=== PATIENT | male | born 1940 | race Hispanic/Latino ===

== ENCOUNTER 2019-10-08 20:26 | Emergency (ER) | payer OTHER ==
--- NOTE | 2019-10-08 21:21 | RAD REPORT ---
EXAM DESCRIPTION: RAD - Chest Single View - 10/08/2019 9:12 pm CLINICAL HISTORY: COUGH Chest pain. COMPARISON: No comparisons FINDINGS: Portable technique limits examination quality. The lungs are grossly clear. The heart is mildly prominent in size with sternotomy wires present. No displaced fractures. IMPRESSION: No acute intrathoracic process suspected.
[2019-10-08 21:29] LABS: Absolute Lymphocytes (CBC) 1.2 K/uL (0.7-4.9); Basophils % 0.6 % (0-1.3); Hematocrit 39.6 % (39.6-49.0); Lymphocytes % 17.8 % (15.3-44.8); MPV 8.1 fL (7.6-11.3)
[2019-10-08] MEDS ORDERED: NA CHLORIDE 0.9% 1,000 ML ONE (21:32)
[2019-10-08 21:51] LABS: ALT/SGPT 20 U/L (12-78); AST/SGOT 13 U/L (15-37); Albumin 3.7 g/dL (3.4-5.0); Alkaline Phosphatase 82 U/L (45-117); BUN Blood Urea Nitrogen 22 mg/dL (7-18); Bicarbonate 27 mmol/L (21-32); Bilirubin Direct < 0.1 mg/dL (0-0.2); Bilirubin Total 0.3 mg/dL (0.2-1.0); Glucose Level 150 mg/dL (74-106); Magnesium 2.4 mg/dL (1.8-2.4); NT PRO-BNP 815 pg/mL (<450); Protein, Total 7.1 g/dL (6.4-8.2); Sodium Level 141 mmol/L (136-145); Troponin (Emerg Dept Use Only) < 0.02 ng/mL (0.0-0.045)
[2019-10-08 21:57] LABS: Protime INR 0.95
[2019-10-08] MEDS ORDERED: CEFTRIAXONE/SWI 1gm 1 GM/10 ML SYR ONE (21:59)
[2019-10-08 22:02] LABS: Urine Blood TRACE (NEG); Urine Glucose NEGATIVE (NEG); Urine Protein NEGATIVE (NEG); Urine Specific Gravity >1.030 (1.005-1.030); Urine pH 5.5 (5.0-7.0)
--- NOTE | 2019-10-08 22:20 | EDPHYS ---
Physician Documentation [facility] Name: Delmer Oropeza Age: 79 yrs Sex: Male : 1940 Arrival Date: 10/08/2019 Time: 20:28 Bed 6 Private MD: ED Physician Lionel Mortensen HPI: 10/07 20:54 This 79 yrs old Male presents to ER via Unassigned with complaints of Fever. christiano 20:54 The patient reports fever, not measured (subjective), that was measured at 98.2 degrees christiano Fahrenheit. Onset: The symptoms/episode began/occurred just prior to arrival. Modifying factors: there are no obvious modifying factors. Associated signs and symptoms: Pertinent negatives: abdominal pain, altered mental status, arthralgias, chills, cough, diarrhea, headache, nausea, night sweats, runny nose, sinus congestion, sinus drainage, skin rash, shortness of breath, sore throat. Severity of symptoms: At their worst the symptoms were very mild in the emergency department the symptoms are unchanged. The patient has not experienced similar symptoms in the past. Historical: - Allergies: 21:03 No Known Allergies; vc - Home Meds: 21:03 something for diabetes [Active]; "something for bloodpressure" [Active]; "something for vc my prostate" [Active]; - PMHx: 21:04 Hypertension; Diabetes - NIDDM; prostate problem; triple bypass in 1992; vc - Immunization history:: Adult Immunizations up to date. - Social history:: Smoking status: Patient denies any tobacco usage or history of. - Family history:: not pertinent. ROS: 20:54 Constitutional: Negative for fever, chills, and weight loss, Eyes: Negative for injury, christiano pain, redness, and discharge, ENT: Negative for injury, pain, and discharge, Neck: Negative for injury, pain, and swelling, Cardiovascular: Negative for chest pain, palpitations, and edema, Respiratory: Negative for shortness of breath, cough, wheezing, and pleuritic chest pain, Abdomen/GI: Negative for abdominal pain, nausea, vomiting, diarrhea, and constipation, Back: Negative for injury and pain, : Negative for injury, bleeding, discharge, and swelling, MS/Extremity: Negative for injury and deformity, Skin: Negative for injury, rash, and discoloration, Neuro: Negative for headache, weakness, numbness, tingling, and seizure, Psych: Negative for depression, anxiety, suicide ideation, homicidal ideation, and hallucinations, Allergy/Immunology: Negative for hives, rash, and allergies, Endocrine: Negative for neck swelling, polydipsia, polyuria, polyphagia, and marked weight changes, Hematologic/Lymphatic: Negative for swollen nodes, abnormal bleeding, and unusual bruising. Exam: 20:54 Constitutional: This is a well developed, well nourished patient who is awake, alert, christiano and in no acute distress. Head/Face: Normocephalic, atraumatic. Eyes: Pupils equal round and reactive to light, extra-ocular motions intact. Lids and lashes normal. Conjunctiva and sclera are non-icteric and not injected. Cornea within normal limits. Periorbital areas with no swelling, redness, or edema. ENT: Nares patent. No nasal discharge, no septal abnormalities noted. Tympanic membranes are normal and external auditory canals are clear. Oropharynx with no redness, swelling, or masses, exudates, or evidence of obstruction, uvula midline. Mucous membranes moist. Neck: Trachea midline, no thyromegaly or masses palpated, and no cervical lymphadenopathy. Supple, full range of motion without nuchal rigidity, or vertebral point tenderness. No Meningismus. Chest/axilla: Normal chest wall appearance and motion. Nontender with no deformity. No lesions are appreciated. Cardiovascular: Regular rate and rhythm with a normal S1 and S2. No gallops, murmurs, or rubs. Normal PMI, no JVD. No pulse deficits. Respiratory: Lungs have equal breath sounds bilaterally, clear to auscultation and percussion. No rales, rhonchi or wheezes noted. No increased work of breathing, no retractions or nasal flaring. Abdomen/GI: Soft, non-tender, with normal bowel sounds. No distension or tympany. No guarding or rebound. No evidence of tenderness throughout. Back: No spinal tenderness. No costovertebral tenderness. Full range of motion. Male : Normal genitalia with no discharge or lesions. Skin: Warm, dry with normal turgor. Normal color with no rashes, no lesions, and no evidence of cellulitis. MS/ Extremity: Pulses equal, no cyanosis. Neurovascular intact. Full, normal range of motion. Neuro: Awake and alert, GCS 15, oriented to person, place, time, and situation. Cranial nerves II-XII grossly intact. Motor strength 5/5 in all extremities. Sensory grossly intact. Cerebellar exam normal. Normal gait. Psych: Awake, alert, with orientation to person, place and time. Behavior, mood, and affect are within normal limits. Vital Signs: 20:57 BP 151 / 83; Pulse 82; Resp 20; Temp 98.4(O); Pulse Ox 100% on R/A; Weight 79.38 kg; vc Height 5 ft. 9 in. (175.26 cm); Pain 0/10; 21:50 BP 155 / 86; Pulse 96; Resp 18; Pulse Ox 97% on R/A; vc 20:57 Body Mass Index 25.84 (79.38 kg, 175.26 cm) vc MDM: 20:37 Patient medically screened. [facility] 20:56 Data reviewed: vital signs, nurses notes, lab test result(s), EKG, radiologic studies, christiano plain films. 10/07 20:40 Order name: Basic Metabolic Panel; Complete Time: 22:19 [facility] 10/07 20:40 Order name: CBC with Diff; Complete Time: 22:19 [facility] 10/07 20:40 Order name: LFT's; Complete Time: 22:19 [facility] 10/07 20:40 Order name: Magnesium; Complete Time: 22:19 [facility] 10/07 20:40 Order name: NT PRO-BNP; Complete Time: 22:19 [facility] 10/07 20:40 Order name: PT-INR; Complete Time: 22:19 [facility] 10/07 20:40 Order name: Troponin (emerg Dept Use Only); Complete Time: 22:19 [facility] 10/07 20:40 Order name: XRAY Chest (1 view); Complete Time: 22:19 [facility] 10/07 20:40 Order name: Blood Culture Adult (2) [facility] 10/07 20:40 Order name: Influenza Screen (a \\T\\ B); Complete Time: 22:19 [facility] 10/07 20:40 Order name: Strep; Complete Time: 22:19 [facility] 10/07 20:40 Order name: Urine Culture [facility] 10/07 21:44 Order name: Urine Dipstick--Ancillary (enter results); Complete Time: 22:19 mw2 10/07 21:59 Order name: Throat Culture [facility] 10/07 20:40 Order name: EKG; Complete Time: 20:42 [facility] 10/07 20:40 Order name: Cardiac monitoring; Complete Time: 22:06 [facility] 10/07 20:40 Order name: EKG - Nurse/Tech; Complete Time: 22:06 [facility] 10/07 20:40 Order name: IV Saline Lock; Complete Time: 21:25 [facility] 10/07 20:40 Order name: Labs collected and sent; Complete Time: : [facility] 10/07 20:40 Order name: O2 Per Protocol; Complete Time: 21:25 [facility] 10/07 20:40 Order name: O2 Sat Monitoring; Complete Time: 21: [facility] 10/07 20:40 Order name: Urine Dipstick-Ancillary (obtain specimen); Complete Time: 21:43 [facility] 10/07 22:23 Order name: Orthostatics; Complete Time: 00:48 [facility] Administered Medications: 21:43 Drug: NS 0.9% 1000 ml Route: IV; Rate: 1 bolus; Site: right antecubital; vc 10/08 00:47 Follow up: IV Status: Completed infusion; IV Intake: 1000ml 10/07 21:58 Drug: Rocephin 1 grams Route: IV; Rate: per protocol; Site: right forearm; ea Disposition: 10/08/19 22:19 Discharged to Home. Impression: Fever, unspecified, Type 2 diabetes mellitus. - Condition is Stable. - Discharge Instructions: Type 2 Diabetes Mellitus, Diagnosis, Adult, Fever, Adult, Type 2 Diabetes Mellitus, Diagnosis, Adult, [id number], Fever, Adult, [id number]. - Medication Reconciliation Form, Thank You Letter, Antibiotic Education, Prescription Opioid Use form. - Follow up: Private Physician; When: 2 - 3 days; Reason: Recheck today's complaints, Continuance of care, Re-evaluation by your physician. - Problem is new. - Symptoms have improved. Signatures: Dispatcher [employer] [facility] Lionel Mortensen MD MD cha Antunez, Elena, RN RN Krysta Vasquez RN RN vc Corrections: (The following items were deleted from the chart) 22:37 22:19 10/08/2019 22:19 Discharged to Home. Impression: Fever, unspecified; Type 2 vc diabetes mellitus. Condition is Stable. Discharge Instructions: Type 2 Diabetes Mellitus, Diagnosis, Adult, Fever, Adult, Type 2 Diabetes Mellitus, Diagnosis, Adult, [id number], Fever, Adult, [id number]. Forms are Medication Reconciliation Form, Thank You Letter, Antibiotic Education, Prescription Opioid Use. Follow up: Private Physician; When: 2 - 3 days; Reason: Recheck today's complaints, Continuance of care, Re-evaluation by your physician. Problem is new. Symptoms have improved. christiano
--- NOTE | 2019-10-08 22:20 | ER ---
Nurse's Notes [facility] Name: Delmer Oropeza Age: 79 yrs Sex: Male : 1940 Arrival Date: 10/08/2019 Time: 20:28 Bed 6 Private MD: Diagnosis: Fever, unspecified;Type 2 diabetes mellitus Presentation: 10/07 20:57 Chief complaint: Patient states: "I took my temperature and it was the highest it has vc been, I'm sorry with everything going on I got scared.". Coronavirus screen: Proceed with normal triage. Patient denies a cough. Patient denies shortness of breath or difficulty breathing. Patient denies measured and/or subjective temperature greater than 100.4F prior to today's visit. Patient denies travel on a cruise ship or to a country the [facility] currently lists as an affected area. Patient denies contact with known and/or suspected case of COVID-19. Ebola Screen: No symptoms or risks identified at this time. Initial Sepsis Screen: Does the patient meet any 2 criteria? No. Patient's initial sepsis screen is negative. Does the patient have a suspected source of infection? No. Patient's initial sepsis screen is negative. Risk Assessment: Do you want to hurt yourself or someone else? Patient reports no desire to harm self or others. Onset of symptoms was 1999. 20:57 Method Of Arrival: Wheelchair vc 20:57 Acuity: MONROE 4 vc Triage Assessment: 21:05 General: Appears in no apparent distress. Behavior is cooperative, anxious. Pain: vc Denies pain. Historical: - Allergies: 21:03 No Known Allergies; vc - Home Meds: 21:03 something for diabetes [Active]; "something for bloodpressure" [Active]; "something for vc my prostate" [Active]; - PMHx: 21:04 Hypertension; Diabetes - NIDDM; prostate problem; triple bypass in 1992; vc - Immunization history:: Adult Immunizations up to date. - Social history:: Smoking status: Patient denies any tobacco usage or history of. - Family history:: not pertinent. Screenin:05 Abuse screen: Denies threats or abuse. Nutritional screening: No deficits noted. vc Tuberculosis screening: No symptoms or risk factors identified. Fall Risk None identified. Assessment: 20:30 General: Appears in no apparent distress. comfortable, Behavior is cooperative, vc anxious. Pain: Denies pain. Pain: Denies pain. Neuro: Level of Consciousness is awake, alert, obeys commands, Oriented to person, place, time, situation. Cardiovascular: Capillary refill < 3 seconds Patient's skin is warm and dry. Respiratory: Respiratory effort is even, unlabored, Respiratory pattern is regular, symmetrical. GI: No signs and/or symptoms were reported involving the gastrointestinal system. : No signs and/or symptoms were reported regarding the genitourinary system. EENT: No signs and/or symptoms were reported regarding the EENT system. Derm: Skin temperature is warm. Musculoskeletal: Circulation, motion, and sensation intact. Range of motion: intact in all extremities. 21:30 Reassessment: Patient appears in no apparent distress at this time. Patient and/or vc family updated on plan of care and expected duration. Pain level reassessed. 22:20 Reassessment: Patient appears in no apparent distress at this time. Patient and/or vc family updated on plan of care and expected duration. Pain level reassessed. Patient is alert, oriented x 3, equal unlabored respirations, skin warm/dry/pink. Vital Signs: 20:57 BP 151 / 83; Pulse 82; Resp 20; Temp 98.4(O); Pulse Ox 100% on R/A; Weight 79.38 kg; vc Height 5 ft. 9 in. (175.26 cm); Pain 0/10; 21:50 BP 155 / 86; Pulse 96; Resp 18; Pulse Ox 97% on R/A; vc 20:57 Body Mass Index 25.84 (79.38 kg, 175.26 cm) vc ED Course: 20:28 Patient arrived in ED. cl3 20:37 Lionel Mortensen MD is Attending Physician. christiano 20:44 Krysta Amador RN is Primary Nurse. vc 21:01 Triage completed. vc 21:05 Arm band placed on right wrist. vc 21:05 Patient has correct armband on for positive identification. Bed in low position. Call vc light in reach. Pulse ox on. NIBP on. 21:13 XRAY Chest (1 view) In Process Unspecified. EDMS 21:42 Missed attempt(s): 20 gauge in left antecubital area. dh4 22:20 IV discontinued, intact, bleeding controlled, No redness/swelling at site. Pressure vc dressing applied. 22:21 No provider procedures requiring assistance completed. vc Administered Medications: 21:43 Drug: NS 0.9% 1000 ml Route: IV; Rate: 1 bolus; Site: right antecubital; vc 10/08 00:47 Follow up: IV Status: Completed infusion; IV Intake: 1000ml vc 10/07 21:58 Drug: Rocephin 1 grams Route: IV; Rate: per protocol; Site: right forearm; ea Intake: 10/08 00:47 IV: 1000ml; Total: 1000ml. vc Outcome: 10/07 22:19 Discharge ordered by . christiano 22:35 Discharged to home ambulatory. vc 22:35 Condition: good 22:35 Discharge instructions given to patient, Instructed on discharge instructions, follow up and referral plans. Demonstrated understanding of instructions, follow-up care. 22:37 Patient left the ED. vc Signatures: Dispatcher [employer] EDLionel Whitfield MD MD cha Antunez, Elena RN Bertha Moser ea cl3 Krysta Amador RN RN vc Huhn, Donald 4
[2019-10-08 22:43] VITALS: TEMP 98.4
[2019-10-08 22:44] VITALS: BP 155/86; O2SAT 97
--- NOTE | 2019-10-09 07:59 | EKG ---
Test Date: 2019-10-08 Test Time: 22:06:17 Shrimp Trawler: Jd Weaver MEASUREMENT RESULTS: Intervals: Rate: 72 SC: 140 QRSD: 140 QT: 418 QTc: 457 Haddock: P: 33 SC: 140 QRS: 45 T: -10 INTERPRETIVE STATEMENTS: Normal sinus rhythm Nonspecific intraventricular block Possible Inferior infarct, age undetermined Cannot rule out Anterior infarct, age undetermined Abnormal ECG Compared to ECG 06/10/1993 05:45:00 No significant changes Electronically Signed On 10-09-19 07:58:23 CDT by Stanislaw Quinteros
== END 2019-10-08 22:37 | disposition home or self-care (01) ==
LOC: ER 20:26
DX: R50.9 Fever, unspecified (principal); E11.9 Type 2 diabetes mellitus without complications; I10 Essential (primary) hypertension; Z95.1 Presence of aortocoronary bypass graft
CPT/HCPCS: 96361; 93005; 87040 ×2; 87070; 87088; 85025; 87086; 80048; 36415; 83735; 85610; 80076; 87081; 81003; 84484; 83880; 87804 ×2; 71045; 96374; 99283; J0696; J7030

== ENCOUNTER 2020-11-16 07:45 | Emergency (ER) | payer OTHER ==
--- NOTE | 2020-11-16 08:03 | RAD REPORT ---
EXAM DESCRIPTION: CT - Ct Stroke Brain Wo Cont - 11/16/2020 7:54 am CLINICAL HISTORY: Right-sided weakness COMPARISON: none TECHNIQUE: Computed axial tomography of the head was obtained. All CT scans are performed using dose optimization technique as appropriate and may include automated exposure control or mA/KV adjustment according to patient size. FINDINGS: 8 centimeter bleed left parietal lobe. Shift of midline structures 3 millimeters to the ri ght The ventricles are normal in caliber. No extra-axial fluid collection is noted. Fluid within the sinuses/ mastoids is not seen. IMPRESSION: 8 centimeter left parietal lobe bleed is intraparenchymal. There may be a small subarach noid component. When the patient's condition permits an enhanced MRI would be helpful to determine if an underlying mass is present Dr Dexter of the emergency room was notified at 7:52 a.m. November 16, 2020
[2020-11-16 08:04] LABS: Basophils % 0.3 % (0-1.3); Hematocrit 36.9 % (39.6-49.0); Lymphocytes % 8.8 % (15.3-44.8); MPV 7.5 fL (7.6-11.3); RBC Red Blood Cell Count 4.08 M/uL (4.33-5.43)
[2020-11-16 08:11] LABS: Protime INR 1.02
--- NOTE | 2020-11-16 08:15 | EDPHYS ---
Physician Documentation [facility] Name: Delmer Oropeza Age: 80 yrs Sex: Male : 1940 Arrival Date: 11/16/2020 Time: 07:51 Bed 23 Private MD: ED Physician Jorge Dexter HPI: 11/16 07:53 This 80 yrs old Male presents to ER via Unassigned with complaints of AMS. rn 07:53 The patient presents with decreased mental status. Onset: The symptoms/episode rn began/occurred this morning. Possible causes: unknown. Current symptoms: In the emergency department the patient's symptoms are unchanged from the initial presentation. It is unknown whether or not the patient has had similar symptoms in the past. Per EMS, states noticed he woke up around 0530 seeming "groggy", and not acting right, didn't improve so called 911, no seizure activity, no known blood thinners, no known trauma. + hx of Parkinson's. . Historical: - Home Meds: 08:35 lisinopril 5 mg Oral tab 1 tab once daily [Active]; metformin 500 mg Oral tr24 1 tab tr6 once daily [Active]; carbidopa-levodopa 25-100 mg Oral tab 2 tabs 3 times per day [Active]; B-12 DOTS 500 mcg oral tab [Active]; finasteride 5 mg oral tab 1 tab once daily [Active]; Vitamin D Oral 1,000 unit [Active]; tamsulosin 0.4 mg oral cp24 1 cap once daily [Active]; - Immunization history:: Adult Immunizations up to date. - Social history:: Smoking status: unknown. - History obtained from: EMS. - Unable to obtain history due to: altered mental status. ROS: 07:53 Unable to obtain ROS due to altered mental status. rn Exam: 07:53 Constitutional: Thin male, sitting upright, awake, alert Head/Face: Normocephalic, rn atraumatic. Eyes: Pupils equal round and reactive to light, + left eye deviation ENT: dry MM Cardiovascular: Tachycardic, irregular Respiratory: No increased work of breathing, no retractions or nasal flaring. Abdomen/GI: soft, non-tender Skin: Warm, dry MS/ Extremity: Pulses equal, no cyanosis. + contracted RUE with stiffness Neuro: Awake, alert, slow to answer questions, mubmling with incomprehensible speech, moving left side of body to painful stimuli not really command, not moving right side of body. + eyes deviated to left. Vital Signs: 08:05 BP 165 / 80; tr6 08:13 BP 155 / 68; Pulse 76; Resp 20; Pulse Ox 100% on 3 lpm NC; tr6 08:24 BP 140 / 67; Pulse 82; Resp 20; Pulse Ox 100% on 3 lpm NC; tr6 08:30 BP 165 / 80; Pulse 77; Resp 10; Temp 97.9; Pulse Ox 100% 2 lpm ; Weight 40.82 kg; tr6 09:06 BP 128 / 63; Pulse 82; Resp 21; Pulse Ox 96% 4 lpm ; tr6 09:34 BP 125 / 63; Pulse 83; Resp 20; Pulse Ox 100% 4 lpm ; tr6 08:24 MD Dexter at bedside tr6 NIH Stroke Scale Scores: 08:57 NIHSS Score: 23 tr6 Debora Coma Score: 08:10 Eye Response: spontaneous(4). Verbal Response: confused(4). Motor Response: localizes rn pain(5). Total: 13. MDM: 07:51 Patient medically screened. rn 07:57 ED course: Seemed to respond better when walked into room, tried talking to her rn and said "hey". . 08:07 ED course: Pt started on cardene drip for hypertension in setting of intraparenchymal rn bleed. Initiating transfer to [facility] for neuro ICU. Currently protecting airway. . 08:10 Differential Diagnosis: CVA. Data reviewed: vital signs, nurses notes, radiologic rn studies, CT scan, and as a result, I will admit patient. Counseling: I had a detailed discussion with the patient and/or guardian regarding: the historical points, exam findings, and any diagnostic results supporting the discharge/admit diagnosis, radiology results, the need to transfer to another facility, for higher level of care, [facility] does not immediately have the required specialist. ED course: Accepted for transfer to [facility]. 09:08 ED course: [facility] states needs to meet ambulance at [facility], [place] [facility] rn states both trucks out on calls, cannot transport to airport. [facility] going to try and see if can fly into hospital now for transport. BP 128/63 currently on cardene drip, stable clinical exam.. 11/16 07:52 Order name: CBC with Diff; Complete Time: 08:24 rn 11/16 07:52 Order name: Basic Metabolic Panel; Complete Time: 08:24 rn 11/16 07:52 Order name: Protime (+inr); Complete Time: 08:24 rn 11/16 07:52 Order name: Ptt, Activated; Complete Time: 08:24 rn 11/16 08:05 Order name: CBC Smear Scan; Complete Time: 08:24 EDMS 11/16 07:51 Order name: Ct Stroke Brain Wo Cont; Complete Time: 08:04 EDMS 11/16 07:52 Order name: IV Start; Complete Time: 08:16 rn 11/16 07:52 Order name: EKG; Complete Time: 07:52 rn 11/16 07:52 Order name: EKG - Nurse/Tech; Complete Time: 08:16 rn Administered Medications: 08:15 Drug: niCARdipine (25mg/250ml) 5 mg/hr Route: IV; Rate: calculated rate; Site: right tr6 forearm; 08:50 Drug: Keppra (levETIRAcetam) 1000 mg Route: IV; Rate: calculated rate; Site: left tr6 antecubital; Disposition: 08:26 Critical Care:. rn Disposition: 11/16/20 08:14 Transfer ordered to [facility]. 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 - Reason for transfer: Higher level of care. - Accepting physician is . - Condition is Fair. - Problem is new. - Symptoms are unchanged. Critical care time excluding procedures: 08:26 Critical care time: Bedside Care: 25 minutes, Consultation: 2 minutes, Family rn Intervention: 5 minutes. Total time: 32 minutes NIH Stroke Scale - NIH Stroke Score Date: 11/16/2020 Time: 08:57 Total Score = 23 1a. Level of Consciousness (LOC) - 2(Not Alert, obtunded) 1b. Level of Consciousness (LOC) (Year \\T\\ Age) - 2(Neither) 1c. LOC Commands (Open \\T\\ Closes Eyes/Trail Maintenance Worker) - 0(Both) 2. Best Gaze (Lateral Gaze Paresis) - 1(Partial gaze palsy) 3. Visual Field Loss - 1(Partial hemianopia) 4. Facial Palsy - 2(Partial paralysis) 5a. Left Arm: Motor (10-second hold) - 0(No drift) 5b. Right Arm: Motor (10-second hold) - 4(No movement) 6a. Left Leg: Motor (5-second hold - always test supine) - 0(No drift) 6b. Right Leg: Motor (5-second hold - always test supine) - 4(No movement) 7. Limb Ataxia (finger/nose \\T\\ heel/bolton - test with eyes open) - 1(Present in one limb) 8. Sensory Loss (pinprick arms/legs/face) - 0(Normal) 9. Best Language: Aphasia (description/naming/reading) - 3(Mute, global aphasia) 10. Dysarthria (speech clarity - read or repeat words) - 2(Severe) 11. Extinction and Inattention (visual/tactile/auditory/spatial/personal) - 1(Present) Initials: tr6 Signatures: Dispatcher [employer] EDMS Jorge Dexter MD MD rn Calderon, Audri RN RN aa5 Sherry Jj RN RN tr6 Corrections: (The following items were deleted from the chart) 11:25 08:14 11/16/2020 08:14 Transfer ordered to [address] 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 Reason for transfer: Higher level of care. Accepting physician is . Condition is Fair. Problem is new. Symptoms are unchanged. rn
--- NOTE | 2020-11-16 08:15 | ER ---
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 in the last 14 days. At this tr6 time, unable to obtain information related to travel outside the [place] Ebola Screen: Patient negative for fever greater than or equal to 101.5 degrees Fahrenheit, and additional compatible Ebola Virus Disease symptoms Patient denies exposure to infectious person. Patient denies travel to an Ebola-affected area in the 21 days before illness onset. Risk Assessment: Do you want to hurt yourself or someone else? Unable to obtain. 08:30 Method Of Arrival: EMS: [facility] tr6 08:30 Acuity: [place] 2 tr6 09:04 Initial Sepsis Screen: Does the patient meet any 2 criteria? No. Patient's initial tr6 sepsis screen is negative. Does the patient have a suspected source of infection? No. Patient's initial sepsis screen is negative. Onset of symptoms was November 16, 2020. Historical: - Home Meds: 08:35 lisinopril 5 mg Oral tab 1 tab once daily [Active]; metformin 500 mg Oral tr24 1 tab tr6 once daily [Active]; carbidopa-levodopa 25-100 mg Oral tab 2 tabs 3 times per day [Active]; B-12 DOTS 500 mcg oral tab [Active]; finasteride 5 mg oral tab 1 tab once daily [Active]; Vitamin D Oral 1,000 unit [Active]; tamsulosin 0.4 mg oral cp24 1 cap once daily [Active]; - Immunization history:: Adult Immunizations up to date. - Social history:: Smoking status: unknown. - History obtained from: EMS. - Unable to obtain history due to: altered mental status. Screenin:38 Fall Risk. tr6 08:57 Abuse screen: pt unable to answer. Nutritional screening: No deficits noted. tr6 Tuberculosis screening: No symptoms or risk factors identified. Assessment: 08:00 General: Appears comfortable. 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 Paralysis in right arm(s) leg(s) Speech with expressive aphasia noted, Pupils are gazing toward the left, Reaction to noxious stimuli is. Cardiovascular: Rhythm is sinus rhythm. Respiratory: Airway is patent Trachea midline Respiratory effort is even, unlabored, relaxed, Breath sounds are clear. GI: No deficits noted. : No deficits noted. EENT: Derm: No deficits noted. Musculoskeletal: pt has no movement on right side. 08:19 Reassessment: at bedside. tr6 09:27 Reassessment: life flight at bedside to transport pt. all pt belongings and medications tr6 given to pts daughter at bedside. Vital Signs: 08:05 BP 165 / 80; tr6 08:13 BP 155 / 68; Pulse 76; Resp 20; Pulse Ox 100% on 3 lpm NC; tr6 08:24 BP 140 / 67; Pulse 82; Resp 20; Pulse Ox 100% on 3 lpm NC; tr6 08:30 BP 165 / 80; Pulse 77; Resp 10; Temp 97.9; Pulse Ox 100% 2 lpm ; Weight 40.82 kg; tr6 09:06 BP 128 / 63; Pulse 82; Resp 21; Pulse Ox 96% 4 lpm ; tr6 09:34 BP 125 / 63; Pulse 83; Resp 20; Pulse Ox 100% 4 lpm ; tr6 08:24 MD Dexter at bedside tr6 Debora Coma Score: 08:10 Eye Response: spontaneous(4). Verbal Response: confused(4). Motor Response: localizes rn pain(5). Total: 13. NIH Stroke Scale Scores: 08:57 NIHSS Score: 23 tr6 ED Course: 07:51 Patient arrived in ED. rn 07:51 Jorge Dexter MD is Attending Physician. rn 07:53 Ct Stroke Brain Wo Cont In Process Unspecified. EDMS 07:58 Initial lab(s) drawn, by microbiology lab assistant, sent to lab. aa5 07:58 Maintain EMS IV. Dressing intact. Good blood return noted. Site clean \T\ dry. Gauge \T\ aa 5 site: 18G L AC and 18 G R FA. 08:05 Initiated transfer to [facility]. mt 08:[address] Dexter to Dr. Mack at [facility]. mt 08:15 Sherry Jj, RN is Primary Nurse. tr6 08:22 Admin approval given by Galileo Rust, television schedule coordinator, to room 7514. mt 08:26 contacted [employer] [email or web address] to request transport. mt 08:32 Triage completed. tr6 08:35 faxed face sheet and MOT to [employer] [facility] television schedule coordinator. mt 08:38 No provider procedures requiring assistance completed. tr6 09:05 Patient has correct armband on for positive identification. Placed in gown. Bed in low tr6 position. Call light in reach. Side rails up X2. 09:34 Maintain EMS IV. tr6 Administered Medications: 08:15 Drug: niCARdipine (25mg/250ml) 5 mg/hr Route: IV; Rate: calculated rate; Site: right tr6 forearm; 08:50 Drug: Keppra (levETIRAcetam) 1000 mg Route: IV; Rate: calculated rate; Site: left tr6 antecubital; Outcome: 08:14 ER care complete, transfer ordered by . rn 09:29 Transferred by helicopter to [facility]. tr6 09:29 critical 09:30 Patient left the ED. aa5 NIH Stroke Scale - NIH Stroke Score Date: 11/16/2020 Time: 08:57 Total Score = 23 1a. Level of Consciousness (LOC) - 2(Not Alert, obtunded) 1b. Level of Consciousness (LOC) (Year \T\ Age) - 2(Neither) 1c. LOC Commands (Open \T\ Closes Eyes/Professor Of Kinesiology) - 0(Both) 2. Best Gaze (Lateral Gaze Paresis) - 1(Partial gaze palsy) 3. Visual Field Loss - 1(Partial hemianopia) 4. Facial Palsy - 2(Partial paralysis) 5a. Left Arm: Motor (10-second hold) - 0(No drift) 5b. Right Arm: Motor (10-second hold) - 4(No movement) 6a. Left Leg: Motor (5-second hold - always test supine) - 0(No drift) 6b. Right Leg: Motor (5-second hold - always test supine) - 4(No movement) 7. Limb Ataxia (finger/nose \T\ heel/bolton - test with eyes open) - 1(Present in one limb) 8. Sensory Loss (pinprick arms/legs/face) - 0(Normal) 9. Best Language: Aphasia (description/naming/reading) - 3(Mute, global aphasia) 10. Dysarthria (speech clarity - read or repeat words) - 2(Severe) 11. Extinction and Inattention (visual/tactile/auditory/spatial/personal) - 1(Present) Initials: tr6 Signatures: Dispatcher [employer] EDMS Jorge Dexter MD MD rn Calderon, Audri RN RN Ayesha Juarez mt, Tiffany, RN RN tr6 Corrections: (The following items were deleted from the chart) 08:41 08:38 Admin approval given by Galileo Rust, television schedule coordinator, to room 7514 [facility] 09:13 08:13 BP 155 / 68; Pulse 76bpm; Resp 10bpm; Pulse Ox 100% 3 lpm Nasal Cannula; tr6 tr6 09:13 08:24 BP 140 / 67; Pulse 82bpm; Resp 10bpm; Pulse Ox 100% 3 lpm Nasal Cannula; tr6 MD Dexter at bedside; tr6 09:13 09:06 BP 128 / 63; Pulse 82bpm; Resp 13bpm; Pulse Ox 96% 4 lpm; tr6 tr6 11:26 11:25 Patient left the ED. kathie vázquez
[2020-11-16 08:16] LABS: Potassium 3.9 mmol/L (3.5-5.1)
[2020-11-16 08:22] LABS: Blood Morphology Comment NOT SEEN (NOT SEEN); Platelet Estimate ADEQ; White Blood Cell Scan OK (OK)
[2020-11-16] MEDS ORDERED: Nicardipine/NS 25 MG/250 ML KIT IV ONE ×2 (08:22→08:24)
[2020-11-16] MEDS ORDERED: NA CHLORIDE 0.9% 100 ML ONE (09:09)
[2020-11-16] MEDS ORDERED: LEVETIRACETAM 500 MG/5 ML VIAL IV ONE (09:09)
[2020-11-16 11:37] VITALS: TEMP 97.9
[2020-11-16 11:40] VITALS: BP 125/63; O2SAT 100
== END 2020-11-16 11:25 | disposition short-term general hospital (02) ==
LOC: ER 07:45
DX: I61.9 Nontraumatic intracerebral hemorrhage, unspecified (principal); G81.91 Hemiplegia, unspecified affecting right dominant side; I10 Essential (primary) hypertension; R29.723 NIHSS score 23; G20 Parkinson's disease; Z20.822 Contact with and (suspected) exposure to COVID-19
CPT/HCPCS: 93005; 85025; 80048; 36415; 85610; 85730; 70450; 99285; U0003; J1953